=== PATIENT | female | born 1995 | race Caucasian/White ===

== ENCOUNTER 2017-10-05 08:46 | Emergency (ER) | payer OTHER ==
[2017-10-05 09:50] LABS: HCG UR QUAL NEGATIVE
[2017-10-05 10:14] LABS: BILIRUBIN,URINE NEGATIVE (NEGATIVE); UA w/ MICROSCOPIC CHARGE YES
[2017-10-05 10:19] LABS: UR CULTURE IF IND NOT INDICATED; WBC,URINE 0-3 /HPF (0-5)
[2017-10-05 11:06] VITALS: BP 129/92
--- NOTE | 2017-10-05 11:19 | ED Physician Documentation ---
PD HPI FEMALE - Stated complaint Stated Complaint: FEMALE /IUD - Chief complaint Chief Complaint: UTI - History obtained from History obtained from: Patient - History of Present Illness Timing - onset: How many days ago (2) Timing - duration: Days (2) Timing - details: Abrupt onset, Still present Associated symptoms: Pelvic pain, Vaginal bleeding Contributing factors: IUD Similar symptoms before: Has not had sx before Recently seen: Not recently seen - Additional information Additional information: 22-year-old female who has had an IUD in place for approximately 3 years has developed some abnormal bleeding and she is having some cramping pain as well. She has not been having regular periods since her IUD was in place. She attempted to find the string to her IUD and was unable to find it this weekend and she is concerned about the IUD being dislodged. She is wanting and ultrasound to determine the placement of the IUD. She has a [employer] doctor, Dr. Banegas who she will follow-up with. Review of Systems Constitutional: denies: Fever, Chills, Myalgias, Fatigue Respiratory: denies: Cough GI: denies: Abdominal Pain, Nausea, Vomiting : reports: Vaginal bleeding. denies: Dysuria, Frequency, Discharge Skin: denies: Rash Musculoskeletal: denies: Neck pain, Back pain, Extremity pain PD PAST MEDICAL HISTORY - Past Surgical History Past Surgical History: No - Present Medications Home Medications: Ambulatory Orders Medication Instructions Recorded Confirmed No Known Home Medications [No 10/05/17 10/05/17 Known Home Medications] - Allergies Allergies/Adverse Reactions: Allergies Allergy/AdvReac Type Severity Reaction Status Date / Time No Known Drug Allergies Allergy Verified 10/05/17 08:54 - Social History Does the pt smoke?: No Smoking Status: Never smoker Does the pt drink ETOH?: No Does the pt have substance abuse?: No - Immunizations Immunizations are current?: Yes - POLST Patient has POLST: No PD ED PE NORMAL - Vitals Vital signs reviewed: Yes (normal ) - General General: Alert and oriented X 3, No acute distress, Well developed/nourished - HEENT HEENT: Atraumatic, PERRL - Neck Neck: Supple, no meningeal sign - Respiratory Respiratory: No respiratory distress - Back Back: No CVA TTP, No spinal TTP - Derm Derm: Normal color, Warm and dry, No rash - Extremities Extremities: No deformity, No edema - Neuro Neuro: No motor deficit, No sensory deficit Eye Opening: Spontaneous Motor: Obeys Commands Verbal: Oriented GCS Score: 15 - Psych Psych: Normal mood, Normal affect Results - Vitals Vitals: Vital Signs - 24 hr 10/05/17 10/05/17 08:50 11:05 Temperature 36.8 C 37.1 C Heart Rate 84 72 Respiratory 16 16 Rate Blood Pressure 115/79 129/92 H O2 Saturation 100 98 Oxygen O2 Source Room air - Labs Labs: Laboratory Tests 10/05/17 10/05/17 09:00 09:00 Urine Color YELLOW Urine Clarity HAZY Urine pH 6.0 Ur Specific [place] >=1.030 H >=1.030 H Urine Protein 30 H Urine Glucose (UA) NEGATIVE Urine Ketones 15 H Urine Occult Blood MODERATE Urine Nitrite NEGATIVE Urine Bilirubin NEGATIVE Urine Urobilinogen 0.2 (NORMAL) Ur Leukocyte Esterase NEGATIVE Urine RBC 11-25 H Urine WBC 0-3 Ur Squamous Epith Cells MOD Squamous H Urine Bacteria Moderate H Ur Microscopic Review INDICATED Urine Culture Comments NOT INDICATED Urine HCG, Qual NEGATIVE Procedures - Bedside sono Bedside sono by EMP: With use of bedside ultrasound the pelvis is imaged and the IUD appears to be in place. The image is handed to the patient for her to share with her [employer] doctor.The patient is reassured by this and will follow up with Dr. Banegas. PD MEDICAL DECISION MAKING - ED course Complexity details: reviewed results, re-evaluated patient, considered differential, d/w patient ED course: 22-year-old female with concerns about the positioning of her IUD has the IUD in place by bedside ultrasound examination. She will follow-up with her [employer] doctor as she is getting ready to have her IUD replaced. Departure - Departure Disposition: 01 Home, Self Care Clinical Impression: IUD (intrauterine device) in place Condition: Stable Instructions: Levonorgestrel intrauterine device IUD Follow-Up: Flavio Banegas MD [Provider Admit Priv/Credential] -
== END 2017-10-05 11:30 | disposition home or self-care (01) ==
LOC: ED 08:46
DX: R10.2 Pelvic and perineal pain (principal); Z97.5 Presence of (intrauterine) contraceptive device
CPT/HCPCS: 81001; 81003; 81025; 87086; 99283